=== PATIENT | male | born 1960 | race Caucasian/White ===

== ENCOUNTER 2023-08-28 13:53 | Emergency (ER) | payer OTHER ==
[2023-08-28] MEDS ORDERED: Lidocaine 1% (PF) 30 ML VIAL ONE (14:14)
[2023-08-28] MEDS ORDERED: Bupivacaine 0.5% 10 ML VIAL ONE (14:14)
[2023-08-28] MEDS ORDERED: Cephalexin 250 MG CAP ONE (14:43)
[2023-08-28] MEDS ORDERED: Bacitracin 1 PK ONE (15:47)
== END 2023-08-28 16:23 | disposition home or self-care (01) ==
LOC: NAV ERS 13:53
DX: S62.634B Displaced fracture of distal phalanx of right ring finger, initial encounter for open fracture (principal); E78.00 Pure hypercholesterolemia, unspecified; I10 Essential (primary) hypertension; Z79.82 Long term (current) use of aspirin; Z79.899 Other long term (current) drug therapy; W23.1XXA Caught, crushed, jammed, or pinched between stationary objects, initial encounter
CPT/HCPCS: 11732; J2001; J3490